=== PATIENT | female | born 1980 | race Caucasian/White ===

== ENCOUNTER → 2019-09-25 | Outpatient (CLI) | payer OTHER | LOC: COL.RAD 09-14 14:45 | DX: M54.2 Cervicalgia (principal) ==

== ENCOUNTER → 2019-10-25 | Outpatient (CLI) | payer OTHER | LOC: MHCPAIN 08:10 | DX: R51 Headache (principal); M54.81 Occipital neuralgia; G89.29 Other chronic pain; E11.9 Type 2 diabetes mellitus without complications | CPT/HCPCS: G0463 ==

== ENCOUNTER → 2020-01-15 | Outpatient (CLI) | payer OTHER | LOC: MHCPAIN 09:29 | DX: M47.812 Spondylosis without myelopathy or radiculopathy, cervical region (principal); M54.2 Cervicalgia; M54.81 Occipital neuralgia; R51 Headache; G89.29 Other chronic pain | CPT/HCPCS: G0463; J1040 ==

== ENCOUNTER → 2020-01-31 | Outpatient (CLI) | payer OTHER | LOC: MHCPAIN 07:58 | DX: M47.812 Spondylosis without myelopathy or radiculopathy, cervical region (principal); M54.81 Occipital neuralgia; M54.2 Cervicalgia; M89.29 Other disorders of bone development and growth, multiple sites; R51 Headache | CPT/HCPCS: G0463 ==

== ENCOUNTER → 2020-05-22 | Outpatient (CLI) | payer OTHER | LOC: MHCPAIN 09:02 | DX: M47.812 Spondylosis without myelopathy or radiculopathy, cervical region (principal); M54.2 Cervicalgia; M54.81 Occipital neuralgia; R51.9 Headache, unspecified; G89.29 Other chronic pain | CPT/HCPCS: G0463; J1040 ==

== ENCOUNTER → 2020-09-25 | Outpatient (CLI) | payer OTHER | LOC: MHCPAIN 08:52 | DX: M47.812 Spondylosis without myelopathy or radiculopathy, cervical region (principal); M54.2 Cervicalgia; M54.81 Occipital neuralgia; R51.9 Headache, unspecified; E11.9 Type 2 diabetes mellitus without complications | CPT/HCPCS: G0463 ==

== ENCOUNTER → 2023-10-07 | Outpatient (CLI) | payer OTHER | LOC: COL.RAD 11:56 | DX: M25.562 Pain in left knee (principal); Z91.81 History of falling ==